=== PATIENT | male | born 1985 | race Caucasian/White ===

== ENCOUNTER 2021-02-28 13:03 | Emergency (ER) | payer MEDICAID, SELFPAY ==
[2021-02-28] VITALS (10 sets, daily range): BP systolic 117–138; BP diastolic 78–91; PULSE 115–123; RESP 16–28; TEMP 36.8; O2SAT 94–119; BMI 26.6
--- NOTE | 2021-02-28 13:24 | ED_ITS ---
HPI - General Adult General: Chief complaint: General Medical Stated complaint: POSS JAUNDICE, SWELLING IN GROIN, BLOATING, ETC Time Seen by Provider: 02/28/21 13:23 Source: patient Mode of arrival: ambulatory Limitations: no limitations History of Present Illness: HPI narrative: 36-year-old male patient presents to the emergency room with a list of complaints and past medical history. He reports recently discharged from [facility] [place] approximately 6 weeks ago for seizures. He reports for the past week, has experienced testicular swelling that has now increased into the shaft of the penis. He denies trauma or injury with 2-day history of pain with urination. He reports upon urinating first thing in the morning, there appears to be blood then urine will clear throughout the day. He reports taking dnyf-ide-vsenvcw water pills x 5 weeks, took for dehydration ; he reports swelling in the bilateral lower extremities that started several weeks prior. Other complaints includes jaundice for 5 weeks. He reports his skin discoloration is worsening along with discoloration of the sclera, eyes. He reports seizure history, remains on Keppra. He states daily intake of the fifth of whiskey x3 years; reports 3 weeks ago has decreased his intake to 45 mils per day as he is trying to cut back. He reports abdominal distention, change of bowel movement size and consistency and color. He reports does not know what is going on but is here for help. He reports belly pain with belly swelling. He denies abdominal surgery. Onset (ago): week(s) Location: abdomen, pelvis and genitals Severity: moderate Relieving factors: none Exacerbating factors: none Associated symptoms: Reports decreased appetite, malaise and weakness; Deny chest pain, diaphoresis, dyspnea, headache(s), nausea, rash, palpitations, syncope or vomiting Review of Systems General: Reports: 10 or more systems reviewed and unremarkable except in HPI and below Const: Reports: body aches, fatigue and malaise; Denies: fever(s), chills or diaphoresis Eyes: Reports: yellow eyes; Denies: change in vision, blurry vision, eye discomfort or eye redness ENMT: Denies: throat pain, uvular edema, dental pain, disequilibrium, nasal congestion or nasal obstruction Card: Reports: swelling of feet/ankles and dyspnea on exertion; Denies: chest pain, palpitations, irregular heart rhythm, lightheadedness or syncope Resp: Denies: dyspnea, productive cough, non-productive cough, wheezing or chest congestion GI: Reports: abdominal pain, early satiety, constipation, bloating, change in bowel habits and white/light colored stool; Denies: nausea, vomiting, hematemesis, heartburn, fecal incontinence, pain on defecation or hematochezia : Reports: urinary hesitancy, change in urine stream, hematuria, testicular pain and scrotal swelling; Denies: dysuria Musc: Reports: muscle weakness; Denies: neck pain, back pain or joint pain Skin/Breast: Reports: changes in skin color; Denies: rash, pruritus or erythema Neuro: Denies: headache(s), numbness in extremities, weakness in extremities, vertigo, behavioral changes or seizure-like activity Psych: Denies: anxiety or depression Isidro/Lymph: Denies: easy bruising PFSH ED PFSH: Medical History Alcohol abuse Seizure Physical Exam Const: COMMON NORMALS: no acute distress, patient oriented x3 and alert GENERAL APPEARANCE: cooperative, comfortable, well kempt and ill appearing NUTRITIONAL APPEARANCE: thin ORIENTATION/CONSCIOUSNESS: Yes awake, Yes oriented to person, Yes oriented to place and Yes oriented to time HENMT: COMMON NORMALS: normocephalic, atraumatic, external ears normal, EAC's normal, Normal external nose present and moist oral mucous membranes HEAD & SCALP: normal to inspection, normocephalic and atraumatic FACE & SINUS: sinuses nontender; face not symmetric, no erythema and no edema NOSE: Normal external nose present EXTERNAL EAR: Yes external ears normal EXTERNAL AUDITORY CANAL: EAC's normal MOUTH: lip normal, tongue normal and Abnormal oral and palatal mucosa present (Jaundice) THROAT: no uvular edema Eye: COMMON NORMALS: Equal, round and reactive pupils present and EOMs intact bilaterally GENERAL EYE: appearance normal, both eyes and all related structures ALIGNMENT: Yes alignment normal PERIORBITAL: periorbital findings normal EYELID: eyelids normal CONJUNCTIVA: Yes conjunctival abnormal positive bilateral other (Jaundice) SCLERA: scleral abnormal Laterality of scleral abnormality: positive bilateral other (Jaundice) PUPIL: Yes Equal, round and reactive pupils present Neck/C-Spine: COMMON NORMALS: full ROM and no lymphadenopathy GENERAL: Yes normal visual inspection and Yes trachea midline CERVICAL SPINE: Yes cervical ROM normal Lymph: LYMPHATIC: no lymphadenopathy noted Chest: COMMONS NORMALS: normal inspection of the chest and normal palpation of entire chest wall Resp: COMMON NORMALS: normal respiratory effort, No retractions, No use of accessory muscles and clear to auscultation bilaterally EFFORT & INSPECTION: Yes able to speak in complete sentences, Yes symmetric chest movement, No tachypneic and No uses accessory muscles AUSCULTATION: clear to auscultation bilaterally Cardio: COMMON NORMALS: regular rate, regular rhythm, S1 normal heart sound present, S2 normal heart sound present and Peripheral pulses 2+ throughout RATE: regular rate and tachycardic RHYTHM: regular rhythm HEART SOUNDS: S1 normal heart sound present and S2 normal heart sound present PERIPHERAL PULSES: Peripheral pulses 2+ throughout GI: INSPECTION: Yes normal to inspection, No abdominal wall ecchymosis, Yes abdominal distension, No central obesity, No visible herniation, Yes Fluid wave present and Yes Localized GI swelling present AUSCULTATION: Yes Hypoactive bowel sounds present PALPATION: Yes Tenderness to palpation present (GI) Details: LLQ, RLQ, LUQ and RUQ and Yes Hepatosplenomegaly present PERCUSSION: dullness to percussion and Fluid wave present : COMMON NORMALS: Yes no CVA tenderness BLADDER/KIDNEY EXAM: Yes no CVA tenderness Back/Pelvis: COMMON NORMALS: no CVA tenderness, thoracic and lumbar spine normal to inspection and no thoracic nor lumbar tenderness Extremity: COMMON NORMALS: normal to inspection, full ROM, capillary refill normal and no pedal edema GENERAL: Yes normal exam except as noted Neuro: COMMON NORMALS: patient oriented x3 and no focal motor deficits SENSORIUM/ORIENTATION: Yes alert, Yes oriented to person, Yes oriented to place and Yes oriented to time Psych: COMMON NORMALS: mental status grossly normal, Normal thought process present and cooperative APPEARANCE: Yes well kempt ACTIVITY/MOTOR BEHAVIOR: Yes appropriate eye contact THOUGHT PROCESS: Normal thought process present Skin: COMMON NORMALS: no rashes or lesions noted and turgor normal GENERAL SKIN EXAM: no rashes or lesions noted, turgor normal, dry skin and jaundice RASHES: rashes noted Petechial rash to the upper torso anterior and posterior Rash type: Yes petechiae Rash location: Upper anterior and posterior chest wall Rash shape: Yes oval Rash tenderness: Yes nontender Course Vital Signs: Vital signs: Vital Signs Temperature 98.2 F 02/28/21 13:16 Pulse Rate 115 H 02/28/21 15:23 Respiratory Rate 28 H 02/28/21 15:23 Blood Pressure 135/91 02/28/21 15:23 Pulse Oximetry 97 02/28/21 15:23 MDM - General Adult MDM Narrative: Medical decision making narrative: And appears very ill, transfer of care to Dr. Lee as patient will need higher level of care and possible transfer. Highly suspicious of liver failure. Lab Data: Labs: Lab Results 02/28/21 02/28/21 02/28/21 Range/Units 14:19 14:19 14:19 WBC 32.9 H* (4.0-10.0) 10^3/ uL RBC 3.07 L (4.1-5.3) 10^6/u L Hgb 11.3 L (11.7-16.6) g/dL Hct 32.5 L (42.0-52.0) % MCV 105.9 H (80-94) fL MCH 36.8 H (28.0-34.0) pg MCHC 34.8 (30.0-36.0) g/dL RDW 24.8 H (12.1-15.1) % Plt Count 187 (130-400) 10^3/c mm MPV 11.1 H (7.4-10.4) fL Neut % (Auto) 84.0 % Lymph % (Auto) 4.7 % [place] % (Auto) 6.2 % Eos % (Auto) 0.3 % Baso % (Auto) 0.2 % Neut # (Auto) 27.66 H (1.8-7.7) 10^3/u L Lymph # (Auto) 1.5 (0.8-4.8) 10^3/u L [place] # (Auto) 2.0 H (0.2-0.9) 10^3/u L Eos # (Auto) 0.1 (0.0-0.8) 10^3/u L Baso # (Auto) 0.1 (0.0-0.1) 10^3/u L Nucleated RBC % (a uto) 0.3 % Nucleated RBCs # 0.1 /100WBC PT 18.80 H (12.1-14.9) SECO NDS INR 1.52 H (0.8-1.2) APTT 52.5 H (23.9-36.7) SECO NDS Anion Gap 15.7 (5-19) BUN 11 (6-20) mg/dL ALT 18 (0-41) U/L Troponin T Baselin e (0-15) ng/L Total Protein 6.7 (6.6-8.7) g/dL Globulin 4.1 (1.3-4.6) g/dL Lipase 31 (13-60) U/L Urine Color (Yellow) Urine Appearance (CLEAR) Urine pH (5-7) Ur Specific Gravit y (1.005-1.030) Urine Protein (Negative) Urine Glucose (UA) (Normal) Urine Ketones (Negative) Urine Blood (Negative) Urine Nitrate (Negative) Urine Bilirubin (Negative) Urine Urobilinogen (Negative) mg/dL Ur Leukocyte Serina ase (Negative) Urine RBC (0-2) /hpf Urine WBC (0-5) /hpf Ur Squamous Epith Cells (0-5) /hpf Amorphous Sediment Urine Bacteria (NONE) /hpf Urine Opiates Scre en (Negative) ng/mL Ur Barbiturates Sc reen (Negative) ng/mL Ur Phencyclidine S crn (Negative) ng/mL Ur Amphetamines Sc reen (Negative) ng/mL U Benzodiazepines Scrn (Negative) ng/mL Urine Cocaine Scre en (Negative) ng/mL U Marijuana (THC) Screen (Negative) ng/mL 02/28/21 02/28/21 02/28/21 Range/Units 14:19 14:29 14:32 WBC (4.0-10.0) 10^3/ uL RBC (4.1-5.3) 10^6/u L Hgb (11.7-16.6) g/dL Hct (42.0-52.0) % MCV (80-94) fL MCH (28.0-34.0) pg MCHC (30.0-36.0) g/dL RDW (12.1-15.1) % Plt Count (130-400) 10^3/c mm MPV (7.4-10.4) fL Neut % (Auto) % Lymph % (Auto) % [place] % (Auto) % Eos % (Auto) % Baso % (Auto) % Neut # (Auto) (1.8-7.7) 10^3/u L Lymph # (Auto) (0.8-4.8) 10^3/u L [place] # (Auto) (0.2-0.9) 10^3/u L Eos # (Auto) (0.0-0.8) 10^3/u L Baso # (Auto) (0.0-0.1) 10^3/u L Nucleated RBC % (a uto) % Nucleated RBCs # /100WBC PT (12.1-14.9) SECO NDS INR (0.8-1.2) APTT (23.9-36.7) SECO NDS Anion Gap (5-19) BUN (6-20) mg/dL ALT (0-41) U/L Troponin T Baselin e 6 (0-15) ng/L Total Protein (6.6-8.7) g/dL Globulin (1.3-4.6) g/dL Lipase (13-60) U/L Urine Color Brown (Yellow) Urine Appearance Sl hazy (CLEAR) Urine pH 6.5 (5-7) Ur Specific Gravit y 1.020 (1.005-1.030) Urine Protein Trace (Negative) Urine Glucose (UA) Norm (Normal) Urine Ketones Negative (Negative) Urine Blood Trace H (Negative) Urine Nitrate Negative (Negative) Urine Bilirubin 3+ H (Negative) Urine Urobilinogen 8 H (Negative) mg/dL Ur Leukocyte Serina ase Negative (Negative) Urine RBC Rare (0-2) /hpf Urine WBC 0-4 H (0-5) /hpf Ur Squamous Epith Cells None (0-5) /hpf Amorphous Sediment Not Reportable Urine Bacteria 2+ H (NONE) /hpf Urine Opiates Scre en Negative (Negative) ng/mL Ur Barbiturates Sc reen Negative (Negative) ng/mL Ur Phencyclidine S crn Negative (Negative) ng/mL Ur Amphetamines Sc reen Negative (Negative) ng/mL U Benzodiazepines Scrn Negative (Negative) ng/mL Urine Cocaine Scre en Negative (Negative) ng/mL U Marijuana (THC) Screen Positive H (Negative) ng/mL Coding Level of Care Code ED Hand Finisher for Chg Fwd Exam Comprehensive
--- NOTE | 2021-02-28 14:14 | CT_ITS ---
WS: [id number] CT ABDOMEN AND PELVIS WITH CONTRAST HISTORY: jaundice and abd pain TECHNIQUE: Imaging performed of the abdomen and pelvis with IV contrast. Single phase imaging of the abdomen. Coronal and sagittal reformats are submitted. All CT scans at [facility] use at least one of these dose optimization techniques: automated exposure control; mA and/or kV adjustment per patient size (includes targeted exams where dose is matched to clinical indication); or iterativ e reconstruction. IV CONTRAST: Omnipaque 300; 95 mL IV. Oral contrast: No DLP: 1850.19 mGy.cm COMPARISON: None available. Lower thorax: Very small pleural effusion at the medial RIGHT lung base along with atelectasis. Benig n RIGHT lower lobe granuloma. Heart is normal size. Small hiatal hernia. Liver/biliary system: Liver is enlarged and edematous. The surface of the liver is slightly irregular suggesting cirrhosis. There is also enlargement of the caudate. No mass. Gallbladder: Normal. No gallstones or wall thickening. No pericholecystic fluid. Pancreas: Normal. Spleen: Spleen is slightly enlarged at 14.5 cm in length. There are a few splenic granulomatous. Adrenal glands: Normal. Right kidney: Normal. Left kidney: Normal. Aorta: Normal. Lymphadenopathy: None. Free fluid: Moderate amount of ascites throughout the abdomen. GI tract: Unremarkable. Normal appendix. No obstruction. Abdominal wall: Small fat-containing helical hernia. Pelvis: Moderate amount of free fluid in the pelvis. Urinary bladder is only mildly distended. No mee nopathy. There is a small amount of fluid extending into the RIGHT inguinal canal which is probably s econdary to a patent process vaginalis. Bones: Unremarkable. CT/CT abdomen pelvis w con* [id number] IMPRESSION: 1. Moderate to large amount of ascites. 2. Hepatosplenomegaly and changes of portal venous hypertension. 3. Very small RIGHT pleural effusion. 4. No GI tract obstruction. 5. Mild soft tissue anasarca. 6. Small amount of ascites extends into the RIGHT scrotum.
--- NOTE | 2021-02-28 14:14 | US_ITS ---
WS: [id number] TESTICULAR ULTRASOUND HISTORY: scrotal swelling and pain COMPARISON: None available. TECHNIQUE: Real-time and color Doppler imaging or utilized to perform a testicular ultrasound. Right testicle: 3.6 cm x 4.8 cm x 2.2 cm. Normal size and echogenicity. No mass or torsion. Normal color Doppler is present throughout. Systolic and diastolic velocities are both present. Large simple hydrocele surrounds the testicle and distends the scrotal sac. Right epididymis: Not well seen due to the large hydrocele. Left testicle: 4.4 cm x 2.4 cm x 2.8 cm. Normal size and echogenicity. No mass or torsion. Normal color Doppler is present throughout. Systolic and diastolic velocities are both present. No significant hydrocele. Left epididymis: Not well visualized. US/US scrotum [id number] IMPRESSION: 1. Large simple RIGHT hydrocele. 2. No testicular mass or torsion.
[2021-02-28 14:33] LABS: Basophils # 0.1 10^3/uL (0.0-0.1); Basophils % 0.2 %; Eosinophils # 0.1 10^3/uL (0.0-0.8); Eosinophils % 0.3 %; Hematocrit 32.5 % (42.0-52.0); Hemoglobin 11.3 g/dL (11.7-16.6); Lymphocytes # 1.5 10^3/uL (0.8-4.8); Lymphocytes % 4.7 %; Mean Corpuscular HGB Conc 34.8 g/dL (30.0-36.0); Mean Corpuscular Hemoglobin 36.8 pg (28.0-34.0); Mean Corpuscular Volume 105.9 fL (80-94); Mean Platelet Volume 11.1 fL (7.4-10.4); Monocytes % 6.2 %; Neutrophils # 27.66 10^3/uL (1.8-7.7); Nucleated Red Blood Cells # 0.1 /100WBC; Nucleated Red Blood Cells % 0.3 %; Platelet Count 187 10^3/cmm (130-400); Red Blood Count 3.07 10^6/uL (4.1-5.3); Red Cell Distribution Width 24.8 % (12.1-15.1)
[2021-02-28] MEDS: iohexol 300 mg/mL 100 mL Btl IV (14:33)
--- NOTE | 2021-02-28 14:35 | ECG_ITS ---
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 Measurements Intervals [place] Rate: 114 P: 35 HI: 182 QRS: 70 QRSD: 100 T: 44 QT: 340 QTc: 470 Interpretive Statements SINUS TACHYCARDIA SEPTAL MYOCARDIAL INFARCTION , PROBABLY OLD [40+ ms Q WAVE IN V1/V2] No previous ECG available for comparison Electronically Signed On 02-28-2021 17:18:07 CDT by Latisha Grijalva M.D. [id number]
[2021-02-28 14:43] LABS: Alanine Aminotransferase 18 U/L (0-41); Albumin Level 2.6 g/dL (3.5-5.2); Alkaline Phosphatase 555 IU/L (40-130); Anion Gap 15.7 (5-19); Aspartate Amino Transferase 169 U/L (0-40); Blood Urea Nitrogen 11 mg/dL (6-20); Calcium 7.8 mg/dL (8.5-10.5); Carbon Dioxide 21 mmol/L (22-29); Chloride 90 mmol/L (98-107); Globulin 4.1 g/dL (1.3-4.6); Glomerular Filtration Rate 335.5 mL/min (90-130); Glucose 117 mg/dL (65-115); Lipase 31 U/L (13-60); Osmolality Calculated 258 mOsm/kg (285-295); Sodium 124 mmol/L (136-145); Total Protein 6.7 g/dL (6.6-8.7)
[2021-02-28 14:48] LABS: INR 1.52 (0.8-1.2)
[2021-02-28 14:49] LABS: Partial Thromboplastin Time 52.5 SECONDS (23.9-36.7)
[2021-02-28 14:57] LABS: Troponin(5th) Baseline 6 ng/L (0-15)
[2021-02-28 15:09] LABS: Slide Review Slide Review Perform
[2021-02-28 15:10] LABS: White Blood Count 32.9 10^3/uL (4.0-10.0)
[2021-02-28 15:20] LABS: Add Urine Microscopic? YES; Bilirubin Urine 3+ (Negative); Blood Urine Trace (Negative); Glucose Urine UA Norm (Normal); Ketones Urine Negative (Negative); Leukocyte Esterase Urine Negative (Negative); Nitrate Urine Negative (Negative); Protein Urine Trace (Negative); Urine Appearance SL Hazy (CLEAR); Urine Color Brown (Yellow); Urobilinogen Urine 8 mg/dL (Negative); pH Urine 6.5 (5-7)
[2021-02-28 15:22] LABS: Add Urine Culture? No; Bacteria Urine 2+ /hpf; RBC Urine RARE /hpf (0-2); WBC Urine 0-4 /hpf (0-5)
[2021-02-28 15:22] LABS: Amphetamines Screen Urine Negative (Negative); Barbiturates Screen Urine Negative (Negative); Benzodiazepines Screen Urine Negative (Negative); Cocaine Screen Urine Negative (Negative); Opiate Screen Urine Negative (Negative); PCP Screen Urine Negative (Negative); THC Screen Urine Positive (Negative)
[2021-02-28 15:32] LABS: Alcohol Level 80 mg/dL (0-10); Potassium 2.7 mmol/L (3.5-5.1); Total Bilirubin 35.9 mg/dL (0.15-1.2)
--- NOTE | 2021-02-28 15:39 | PC.PHAR ---
pt states he takes care of his own medications-pt states he uses his girlfriends inhaler ventolin and he uses prn-pt states he may use once a week-pt states he takes lipitor-pt states he is unsure of the mg-pt states hes not sure where he got it from-called pts girlfriend addi to see if she could look at the bottle for the mg- no answer-pt states he is taking lisinopril -ext med history shows last filled on 12/06/20 30d/s-pt states he takes levetiracetam 187.5mg (12/03 tab) po bid-(last filled 12/06/20) 750mg po bid-pt states he takes metoprolol 25mg po daily-(rx filled 12/06/20) 25mg po bid-
[2021-02-28 15:46] LABS: Ammonia 61 umol/L (16-60); Lactate (Lactic Acid level) 3.3 mmol/L (0.5-2.2)
[2021-02-28] MEDS: lactated ringers 1,000 ML 999 ML IV (15:53)
[2021-02-28] MEDS: LORazepam 2 mg/mL INJ 1 mL 1 MG IVP ×3 (15:54→23:14)
[2021-02-28] MEDS: vancomycin 1,250 MG/250 ML PIGGYBACK 250 MG IV (15:56)
[2021-02-28] MEDS: piperacillin-tazobactam 3.375 GM in sodium chloride 0.9% (plus) 50 ML IV ×2 (15:56→22:59)
[2021-02-28 16:30] LABS: Troponin 5 2HR Delta 0 ABS# (0-10)
[2021-02-28 16:33] LABS: Potassium 2.8 mmol/L (3.5-5.1)
--- NOTE | 2021-02-28 16:35 | ECG_ITS ---
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 Measurements Intervals [place] Rate: 117 P: 18 WI: 166 QRS: 48 QRSD: 109 T: 16 QT: 347 QTc: 485 Interpretive Statements SINUS TACHYCARDIA LOW QRS VOLTAGE IN PRECORDIAL LEADS [QRS DEFLECTION < 1.0 mV IN CHEST LEADS] INCOMPLETE RIGHT BUNDLE BRANCH BLOCK [90+ ms QRS DURATION, TERMINAL R IN V1/V2, 40+ ms S IN I/aVL/V4/V5/V6] SEPTAL MYOCARDIAL INFARCTION , PROBABLY OLD [40+ ms Q WAVE IN V1/V2] Compared to ECG 02/28/2021 14:58:14 Low QRS voltage now present Incomplete right bundle-branch block now present Myocardial infarct finding still present Electronically Signed On 02-28-2021 17:24:12 CDT by Latisha Grijalva M.D. [id number]
--- NOTE | 2021-02-28 16:47 | PC.NURSE ---
EKG done at 1645 and shown to ER doctor
[2021-02-28 20:35] LABS: Troponin 5 6HR Delta 0 ng/L (0-12)
--- NOTE | 2021-02-28 20:35 | ECG_ITS ---
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 Measurements Intervals [place] Rate: 117 P: 72 MO: 168 QRS: 54 QRSD: 97 T: 31 QT: 348 QTc: 486 Interpretive Statements SINUS TACHYCARDIA SEPTAL MYOCARDIAL INFARCTION , PROBABLY OLD [40+ ms Q WAVE IN V1/V2] Compared to ECG 02/28/2021 16:44:34 Incomplete right bundle-branch block no longer present Myocardial infarct finding still present Electronically Signed On 02-28-2021 22:33:11 CDT by Latisha Grijalva M.D. [id number]
--- NOTE | 2021-02-28 20:53 | PC.NURSE ---
EKG done at 2049 and shown to ER doctor
--- NOTE | 2021-02-28 22:54 | PC.NURSE ---
report received from SOHAIL Thomas and care transferred to SOHAIL Ring
[2021-02-28] MEDS: sodium chloride 0.9% 1,000 ML 999 ML IV (22:56)
--- NOTE | 2021-02-28 23:02 | PC.PHAR ---
Vancomycin is dosed at 1gm IVPB every 8 hours to produce a predicted trough level of 16.94 (population based pharmacokinetic analysis). A trough level has been ordered from the lab to be obtained before the fourth dose to confirm and adjust if needed. Zosyn is dosed at 3.375gm IVPB every 8 hours on basis of creatinine clearance of 332.9
[2021-02-28 23:05] LABS: Lactate (Lactic Acid level) 2.7 mmol/L (0.5-2.2)
[2021-03-01] VITALS: BP 120/84; PULSE 118; RESP 18
[2021-03-01] MEDS: vancomycin 1,000 MG in sodium chloride 0.9% 250 ML 250 MG IV (00:01)
[2021-03-01 00:04] LABS: Hepatitis A Antibody IgM Non-Reactive (Nonreactive); Hepatitis B Surface AB 27.2 (11.5-1000); Hepatitis B Surface Antigen Non-Reactive (Nonreactive); Hepatitis C Virus Antibody Non-Reactive (Nonreactive)
[2021-03-01 00:51] LABS: Hepatitis B Core AB, Total Reactive (Nonreactive)
== END 2021-03-01 00:14 ==
PROVIDERS: Nurse Practitioner Family; Emergency Provider Family Medicine
DX: N50.89 Other specified disorders of the male genital organs (principal)
CPT/HCPCS: 36415; 74177; 76870; 80053; 80306; 80307; 81001; 82140; 83605; 83690; 84132; 84484; 85025; 85610; 85730; 86705; 86706; 86709; 86803; 87040; 87340; 93005; 96365; 96367; 96368; 96375; 96376; 99285; J2060; J2543; J3370; J3480; J7030; J7050; Q9967

== ENCOUNTER 2021-03-14 12:06 | Emergency (ER) | payer OTHER, SELFPAY ==
[2021-03-14 12:15] VITALS: BP 132/89; PULSE 85; RESP 18; TEMP 36.5; O2SAT 100; BMI 27.8
--- NOTE | 2021-03-14 12:35 | ED_ITS ---
HPI - General Adult General: Chief complaint: General Medical Stated complaint: POSS ANTIFREEZE POISONING Time Seen by Provider: 03/14/21 12:25 History of Present Illness: HPI narrative: Patient father states that he believes patient might be given antifreeze poisoning. He cannot reporting specific incidents of it happening but says patient has liver pancreatic and kidney failure as told by the doctors in [place]. Female patient has been alcoholic for many years and just quit drinking 10 days ago the father believes that his antifreeze is possible because because he research that on [employer] and his symptoms are consistent with the antifreeze poisoning. Nausea confusion at times jaundice. MD complaint: Nausea Onset (ago): week(s) Associated symptoms: Reports no associated symptoms; Deny chest pain, dyspnea, headache(s), nausea, rash or vomiting Treatments prior to arrival: other (Liver pancreas and kidney failure) Review of Systems Const: Denies: fever(s), chills or body aches Eyes: Denies: change in vision or blurry vision ENMT: Denies: throat pain or nasal congestion Card: Denies: chest pain or dyspnea on exertion Resp: Denies: dyspnea, productive cough or non-productive cough GI: Reports: bloating; Denies: abdominal pain, nausea or vomiting : Denies: difficulty urinating Musc: Denies: extremity pain Skin/Breast: Reports: pruritus and jaundice; Denies: rash Neuro: Denies: headache(s) Psych: Reports: mood swings; Denies: anxiety or depression Isidro/Lymph: Denies: easy bruising PFS ED PFSH: Medical History Alcohol abuse Seizure Physical Exam Const: COMMON NORMALS: no acute distress, average body habitus and patient o riented x3 HENMT: COMMON NORMALS: normocephalic HEAD & SCALP: normal to inspection and normocephalic FACE & SINUS: normal facial exam Eye: COMMON NORMALS: conjunctivae normal GENERAL EYE: appearance normal, both eyes and all related structures CONJUNCTIVA: Yes conjunctivae normal SCLERA: scleral abnormal (Jaundiced) Neck/C-Spine: COMMON NORMALS: no JVD Chest: COMMONS NORMALS: normal inspection of the chest Resp: COMMON NORMALS: normal respiratory effort and clear to auscultation bilaterally AUSCULTATION: clear to auscultation bilaterally Cardio: COMMON NORMALS: no JVD, regular rate and regular rhythm RATE: regular rate RHYTHM: regular rhythm GI: INSPECTION: Yes abdominal distension Extremity: COMMON NORMALS: normal to inspection and full ROM Neuro: COMMON NORMALS: patient oriented x3 Psych: COMMON NORMALS: mental status grossly normal Skin: GENERAL SKIN EXAM: jaundice and petechiae Course Vital Signs: Vital signs: Vital Signs Temperature 97.7 F 03/14/21 12:15 Pulse Rate 79 03/14/21 12:48 Respiratory Rate 16 03/14/21 12:48 Blood Pressure 122/87 03/14/21 12:48 Pulse Oximetry 100 03/14/21 12:48 MDM - General Adult MDM Narrative: Medical decision making narrative: Will call patient with the lab results. They are wanting go home. All either of them is interested is whether he has had antifreeze poisoning. Explained to him what liver failure and pancreas and kidney failure and antifreeze poisoning having, and difficulty in differentiating those based on just lab results without having a clear-cut history that patient is being poisoned they said he understood. Patient is not confused all answers all questions appropriately dad and mom are the one that want him tested. Patient patient says he did really did not want be tested but he is going along with them so they will be please. Lab results message was left on patient's dad's phone as requested by them. 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 ID Cak Ammonia 42 (16-60) umol/L Discharge Plan Discharge Patient Disposition: Home Clinical Impression: Alcoholic liver failure Condition: Stable Prescriptions: No Action quetiapine 100 mg tablet See Rx Instructions .ROUTE .COMPLEX RF: 0 amlodipine 10 mg tablet 10 mg PO DAILY RF: 0 pantoprazole 40 mg tablet,delayed release (DR/EC) 40 mg PO DAILY RF: 0 levetiracetam 750 mg tablet See Rx Instructions .ROUTE .COMPLEX RF: 0 lisinopril 5 mg tablet 5 mg PO DAILY RF: 0 metoprolol tartrate 25 mg tablet See Rx Instructions .ROUTE .COMPLEX RF: 0 multivitamin Tablet 1 tab PO DAILY RF: 0 Aspir-81 81 mg Tablet,Delayed Release (Dr/Ec) 81 mg PO PRN RF: 0 vitamin B complex Tablet 1 tab PO QAM RF: 0 Ventolin HFA 90 mcg/actuation Hfa Aerosol Inhaler 2 puff INHALATION PRN RF: 0 Glucosamine Chondroitin 550-30-1 mg Capsule 0.5 cap PO BID RF: 0 Lipitor 1 tab PO DAILY RF: 0 MegaRed Advanced 4-in-1 1 cap PO BEDTIME RF: 0 Probiotic 1 cap PO QAM RF: 0 Discharge Orders: Discharge ED (Routine); Ordered 03/14/21 Ordered By: Aldo Dwyer Discharge Diet: Usual diet Discharge Activity: Resume usual activity Activity Restrictions/Additional Instructions: Patient requesting go home will be notified of lab results. Follow-up primary care doctor. Coding Level of Care Code ED Rn Hemodialysis Charge for Beronica Fwd Exam Comprehensive
[2021-03-14 12:44] LABS: ABG PCO2 29.6 mmHg (35-45); ABG PH Result 7.39 (7.35-7.45); Base Excess ABG -6.2 mmol/L (-2.0-2.0); Blood Gas Allen Test Pos; Blood Gas Operator Identificat CAK; Blood Gas Sample Site Radial, left; Blood Gas Sample Type Arterial; HCO3 ABG 17.9 mmol/L (22-26); Oxygen Device ROOM AIR; PO2 ABG 59.2 mmHg (80.0-100.0)
[2021-03-14 12:48] VITALS: BP 122/87; PULSE 79; RESP 16; O2SAT 100
[2021-03-14 15:05] LABS: Ammonia 42 umol/L (16-60)
== END 2021-03-14 14:38 | disposition home or self-care (01) ==
PROVIDERS: Emergency Provider Nurse Practitioner Family
DX: K70.40 Alcoholic hepatic failure without coma (principal); Z79.82 Long term (current) use of aspirin
CPT/HCPCS: 36600; 82140; 82803; 99282

== ENCOUNTER 2021-03-28 13:30 | Emergency (ER) | payer OTHER, SELFPAY ==
[2021-03-28 14:22] VITALS: BP 154/102; PULSE 109; RESP 18; TEMP 37.1; O2SAT 95; BMI 34.4
[2021-03-28 14:38] VITALS: BP 147/106; PULSE 110; RESP 16; O2SAT 96
[2021-03-28 15:18] LABS: Basophils # 0.1 10^3/uL (0.0-0.1); Basophils % 0.7 %; Eosinophils # 0.3 10^3/uL (0.0-0.8); Eosinophils % 2.1 %; Hemoglobin 10.2 g/dL (11.7-16.6); Lymphocytes % 20.4 %; Mean Corpuscular HGB Conc 32.9 g/dL (30.0-36.0); Mean Corpuscular Hemoglobin 36.6 pg (28.0-34.0); Mean Corpuscular Volume 111.1 fL (80-94); Mean Platelet Volume 9.7 fL (7.4-10.4); Monocytes # 1.2 10^3/uL (0.2-0.9); Monocytes % 7.9 %; Neutrophils # 10.08 10^3/uL (1.8-7.7); Nucleated Red Blood Cells % 0 %; Platelet Count 254 10^3/cmm (130-400); Red Blood Count 2.79 10^6/uL (4.1-5.3); Red Cell Distribution Width 15.2 % (12.1-15.1); White Blood Count 14.8 10^3/uL (4.0-10.0)
[2021-03-28 15:28] LABS: INR 1.42 (0.8-1.2)
[2021-03-28 15:42] LABS: Alanine Aminotransferase 14 U/L (0-41); Albumin Level 2.8 g/dL (3.5-5.2); Alkaline Phosphatase 328 IU/L (40-130); Anion Gap 16.1 (5-19); Aspartate Amino Transferase 39 U/L (0-40); Blood Urea Nitrogen 12 mg/dL (6-20); Calcium 8.2 mg/dL (8.5-10.5); Carbon Dioxide 14 mmol/L (22-29); Chloride 102 mmol/L (98-107); Globulin 4.5 g/dL (1.3-4.6); Glomerular Filtration Rate 83.6 mL/min (90-130); Glucose 86 mg/dL (65-115); Lipase 26 U/L (13-60); Osmolality Calculated 265 mOsm/kg (285-295); Potassium 4.1 mmol/L (3.5-5.1); Sodium 128 mmol/L (136-145); Total Bilirubin 4.1 mg/dL (0.15-1.2); Total Protein 7.3 g/dL (6.6-8.7)
[2021-03-28 15:43] LABS: Lactate (Lactic Acid level) 1.6 mmol/L (0.5-2.2)
[2021-03-28 15:45] LABS: Alcohol Level < 10 mg/dL (0-10)
--- NOTE | 2021-03-28 16:11 | XRR_ITS ---
PROCEDURE INFORMATION: Exam: XR Chest Exam date and time: 03/28/2021 4:11 PM Age: 36 years old Clinical indication: Shortness of breath and other: Reduced breath sounds TECHNIQUE: Imaging protocol: XR of the chest. Views: 1 view. Total images: 1 COMPARISON: No relevant prior studies available. FINDINGS: Lungs: Diminished inspiratory effort. Vascular crowding and mild discoid atelectasis in the lung bases. Pleural spaces: Potential bilateral small pleural effusions. Heart/Mediastinum: Cardiac structures and configuration unremarkable. Bones/joints: Unremarkable. XR/XR chest 1V portable [id number] IMPRESSION: 1. Diminished inspiratory effort. 2. Vascular crowding and mild discoid atelectasis in the lung bases. 3. Potential bilateral small pleural effusions.
[2021-03-28 16:18] VITALS: RESP 16; O2SAT 98
[2021-03-28] MEDS: morphine 4 mg/mL SDV 1 mL IM (16:18)
--- NOTE | 2021-03-28 18:51 | ED_ITS ---
HPI - Abdominal Pain General: Chief Complaint: Abdominal Pain Stated Complaint: EMERGENCY DRAINAGE Time Seen by Provider: 03/28/21 14:44 History of Present Illness: HPI narrative: The patient is a 36-year-old male on hospice for end-stage liver failure with ascites requiring paracentesis. He comes to the ER with abdominal distention and pain requesting a paracentesis. Denies shortness of breath other than his belly is swollen and it is hard to take deep breaths. He complains of chronic abdominal pain and its worse whenever his belly gets full. Denies fever. He is satting well on room air. He says it is not so much abdominal pain just significant discomfort as he is severely distended MD elicited complaint: abdominal pain Location: Diffuse Quality: fullness Associated Symptoms: Reports no associated symptoms and other (Abdominal fullness); Denies GI cramping and diarrhea Review of Systems General: Reports: 10 or more systems reviewed and unremarkable except in HPI and below Const: Denies: fatigue Eyes: Denies: change in vision, blurry vision or eye redness ENMT: Denies: throat pain, swelling of lips/tongue, ear or mastoid pain or nasal congestion Card: Denies: chest pain, palpitations, irregular heart rhythm, edema, dyspnea on exertion or orthopnea Resp: Denies: dyspnea, productive cough or non-productive cough GI: Reports: other (Abdominal fullness); Denies: diarrhea or GI cramping : Denies: flank pain, urinary frequency or urinary urgency Musc: Denies: neck pain, back pain, extremity pain, joint pain, joint redness, limited range of motion or muscle weakness Skin/Breast: Denies: rash, pruritus, erythema, skin pain or skin tenderness Neuro: Denies: headache(s), numbness in extremities, weakness in extremities, sensory changes, difficulty walking, dizziness, confusion or Slurred speech present Psych: Denies: anxiety or depression Endo: Denies: polyuria All/Imm: Denies: urticaria, throat swelling or tongue swelling PFSH ED PFSH: Medical History Alcohol abuse Seizure Physical Exam Const: COMMON NORMALS: no acute distress, average body habitus, patient oriented x3, no limitations, healthy appearing, alert and well nourished GENERAL APPEARANCE: cooperative, comfortable, well kempt and well developed ORIENTATION/CONSCIOUSNESS: Yes awake, Yes oriented to person, Yes oriented to place and Yes oriented to time HENMT: COMMON NORMALS: normocephalic, external ears normal and Normal external nose present HEAD & SCALP: normal to inspection and normocephalic NOSE: Normal external nose present EXTERNAL EAR: Yes external ears normal MOUTH: Normal oral and palatal mucosa present THROAT: posterior oropharynx normal Eye: COMMON NORMALS: Equal, round and reactive pupils present and EOMs intact bilaterally PUPIL: Yes Equal, round and reactive pupils present OTHER: Patient has scleral icterus chronically from his chronic liver failure Neck/C-Spine: COMMON NORMALS: full ROM, no lymphadenopathy, no meningeal signs and no JVD GENERAL: Yes normal visual inspection Lymph: LYMPHATIC: no lymphadenopathy noted Chest: COMMONS NORMALS: normal inspection of the chest and normal palpation of entire chest wall Resp: COMMON NORMALS: normal respiratory effort, No retractions, No use of accessory muscles, clear to auscultation bilaterally and percussion normal EFFORT & INSPECTION: Yes able to speak in complete sentences AUSCULTATION: clear to auscultation bilaterally PERCUSSION: percussion normal Cardio: COMMON NORMALS: no JVD, regular rate, regular rhythm, S1 normal heart sound present, S2 normal heart sound present and Peripheral pulses 2+ throughout RATE: regular rate RHYTHM: regular rhythm HEART SOUNDS: S1 normal heart sound present and S2 normal heart sound present PERIPHERAL PULSES: Peripheral pulses 2+ throughout GI: COMMON NORMALS: non-tender INSPECTION: Yes abdominal distension OTHER: Patient has severe ascites from his end-stage liver failure. His abdomen is distended skin is firm. No significant tenderness just discomfort with palpation. : COMMON NORMALS: Yes no CVA tenderness BLADDER/KIDNEY EXAM: Yes no CVA t enderness Back/Pelvis: COMMON NORMALS: no CVA tenderness, thoracic and lumbar spine normal to inspection, no thoracic nor lumbar tenderness and thoraco-lumbar ROM normal Extremity: COMMON NORMALS: normal to inspection, full ROM, capillary refill normal, no joint enlargement and no pedal edema GENERAL: Yes normal exam except as noted Neuro: COMMON NORMALS: patient oriented x3, CN's II-XII intact bilaterally, moves all extremities, no focal motor deficits, no sensory deficits noted and gait normal SENSORIUM/ORIENTATION: Yes alert, Yes oriented to person, Yes oriented to place and Yes oriented to time MENINGEAL SIGNS: Yes no meningeal signs Psych: COMMON NORMALS: mental status grossly normal, Normal thought process present, cooperative, normal affect and speech normal APPEARANCE: Yes well kempt ATTITUDE: Yes calm SPEECH: Yes normal speech THOUGHT PROCESS: Normal thought process present Skin: COMMON NORMALS: no rashes or lesions noted GENERAL SKIN EXAM: no rashes or lesions noted Course Vital Signs: Vital signs: Vital Signs Temperature 98.7 F 03/28/21 14:22 Pulse Rate 110 H 03/28/21 14:38 Respiratory Rate 16 03/28/21 16:18 Blood Pressure 147/106 03/28/21 14:38 Pulse Oximetry 98 03/28/21 16:18 MDM - Abdominal Pain MDM Narrative: Medical decision making narrative: This patient comes in with severe ascites which she has from his end-stage liver failure. He does have an elevated white count and slightly elevated heart rate though that is likely from his pain he was having. He was given pain control and offered admission. Dr. Bowman came and saw him and the patient did not want to be admitted and recommended having it done as an outpatient. Outpatient paracentesis was ordered for tomorrow at 1015 and he knows exactly where to go for this procedure. He will return to the ER with worsening symptoms. He is on hospice. He reiterated to me departure that he did not want to stay and he was discharged. Lab Data: Labs: Lab Results 03/28/21 03/28/21 03/28/21 Range/Units 15:10 15:10 15:10 WBC 14.8 H (4.0-10.0) 10^3/ uL RBC 2.79 L (4.1-5.3) 10^6/u L Hgb 10.2 L (11.7-16.6) g/dL Hct 31.0 L (42.0-52.0) % MCV 111.1 H (80-94) fL MCH 36.6 H (28.0-34.0) pg MCHC 32.9 (30.0-36.0) g/dL RDW 15.2 H (12.1-15.1) % Plt Count 254 (130-400) 10^3/c mm MPV 9.7 (7.4-10.4) fL Neut % (Auto) 68.0 % Lymph % (Auto) 20.4 % [place] % (Auto) 7.9 % Eos % (Auto) 2.1 % Baso % (Auto) 0.7 % Neut # (Auto) 10.08 H (1.8-7.7) 10^3/u L Lymph # (Auto) 3.0 (0.8-4.8) 10^3/u L [place] # (Auto) 1.2 H (0.2-0.9) 10^3/u L Eos # (Auto) 0.3 (0.0-0.8) 10^3/u L Baso # (Auto) 0.1 (0.0-0.1) 10^3/u L Nucleated RBC % (a uto) 0 % Nucleated RBCs # 0.0 /100WBC PT 17.70 H (12.1-14.9) SECO NDS INR 1.42 H (0.8-1.2) Sodium 128 L (136-145) mmol/L Potassium 4.1 (3.5-5.1) mmol/L Chloride 102 (98-107) mmol/L Carbon Dioxide 14 L (22-29) mmol/L Anion Gap 16.1 (5-19) BUN 12 (6-20) mg/dL Creatinine 1.0 (0.7-1.2) mg/dL GFR Calculation 83.6 L (90-130) mL/min Glucose 86 (65-115) mg/dL Calculated Osmolal ity 265 L (285-295) mOsm/k g Lactate (0.5-2.2) mmol/L Calcium 8.2 L (8.5-10.5) mg/dL Total Bilirubin 4.1 H (0.15-1.2) mg/dL AST 39 (0-40) U/L ALT 14 (0-41) U/L Alkaline Phosphata se 328 H (40-130) IU/L Total Protein 7.3 (6.6-8.7) g/dL Albumin 2.8 L (3.5-5.2) g/dL Globulin 4.5 (1.3-4.6) g/dL Lipase 26 (13-60) U/L Ethyl Alcohol < 10 (0-10) mg/dL 03/28/21 Range/Units 15:10 WBC (4.0-10.0) 10^3/ uL RBC (4.1-5.3) 10^6/u L Hgb (11.7-16.6) g/dL Hct (42.0-52.0) % MCV (80-94) fL MCH (28.0-34.0) pg MCHC (30.0-36.0) g/dL RDW (12.1-15.1) % Plt Count (130-400) 10^3/c mm MPV (7.4-10.4) fL Neut % (Auto) % Lymph % (Auto) % [place] % (Auto) % Eos % (Auto) % Baso % (Auto) % Neut # (Auto) (1.8-7.7) 10^3/u L Lymph # (Auto) (0.8-4.8) 10^3/u L [place] # (Auto) (0.2-0.9) 10^3/u L Eos # (Auto) (0.0-0.8) 10^3/u L Baso # (Auto) (0.0-0.1) 10^3/u L Nucleated RBC % (a uto) % Nucleated RBCs # /100WBC PT (12.1-14.9) SECO NDS INR (0.8-1.2) Sodium (136-145) mmol/L Potassium (3.5-5.1) mmol/L Chloride (98-107) mmol/L Carbon Dioxide (22-29) mmol/L Anion Gap (5-19) BUN (6-20) mg/dL Creatinine (0.7-1.2) mg/dL GFR Calculation (90-130) mL/min Glucose (65-115) mg/dL Calculated Osmolal ity (285-295) mOsm/k g Lactate 1.6 (0.5-2.2) mmol/L Calcium (8.5-10.5) mg/dL Total Bilirubin (0.15-1.2) mg/dL AST (0-40) U/L ALT (0-41) U/L Alkaline Phosphata se (40-130) IU/L Total Protein (6.6-8.7) g/dL Albumin (3.5-5.2) g/dL Globulin (1.3-4.6) g/dL Lipase (13-60) U/L Ethyl Alcohol (0-10) mg/dL Discharge Plan Discharge Patient Disposition: Home Clinical Impression: Ascites due to alcoholic cirrhosis Condition: Stable Prescriptions: No Action morphine concentrate 100 mg/5 mL (20 mg/mL) solution 10 mg PO Q2H RF: 0 spironolactone 25 mg Tablet 25 mg PO DAILY RF: 0 diclofenac sodium 75 mg Tablet,Delayed Release (Dr/Ec) 75 mg PO BID RF: 0 quetiapine 100 mg tablet 25 mg PO DAILY RF: 0 amlodipine 10 mg tablet 10 mg PO DAILY RF: 0 pantoprazole 40 mg tablet,delayed release (DR/EC) 40 mg PO DAILY RF: 0 levetiracetam 750 mg tablet 750 mg PO BID RF: 0 metoprolol tartrate 25 mg tablet 25 mg PO BID RF: 0 multivitamin Tablet 1 tab PO DAILY RF: 0 aspirin [Aspir-81] 81 mg Tablet,Delayed Release (Dr/Ec) 81 mg PO PRN RF: 0 vitamin B complex Tablet 1 tab PO QAM RF: 0 Glucosamine Chondroitin 550-30-1 mg Capsule 0.5 cap PO BID RF: 0 Lipitor 1 tab PO DAILY RF: 0 MegaRed Advanced 4-in-1 1 cap PO BEDTIME RF: 0 Probiotic 1 cap PO QAM RF: 0 Discharge Orders: Discharge ED (Routine); Ordered 03/28/21 Ordered By: Reynold Collins Discharge Diet: Advance as tolerated Discharge Activity: Resume usual activity Patient Instructions: Ascites (ED), Opioid Safety Activity Restrictions/Additional Instructions: You have a therapeutic paracentesis scheduled for tomorrow morning at 10:15 AM. Please arrive at registration at 945 in a.m. and do not eat anything past midnight. Return to the ER at anytime with worsening symptoms or shortness of breath and we will be happy to evaluate you. Coding Level of Care Code ED Lease Purchase Truck Driver for Beronica Garcia
--- NOTE | 2021-03-29 08:51 | PC.SOCIAL ---
Dr Boogie asked that this nurse look into follow up on patient to have Hospice company have another therapeutic paracentesis scheduled to ensure patient does not have to wait until he if full of fluid and very uncomfortable and present to ED and wait to be seen. Patient preference is to have anything done as outpatient to avoid admission to hospital and be able to remain in home setting as much as possible per Dr Boogie report after talking to patient. Patient is established with [facility]. Spoke with Director Luisa (phone #[phone]) to see about getting another paracentesis on schedule toward end of next week in case it is needed prior to having drain placed by Dr Calvo on April 09, 2021 (date given to me by Luisa). Explained that it typically takes awhile to coordinate this as an outpatient so if the Hospice provider can send the order to [facility] then it can be scheduled for hopefully next . The nurse will go out Thu to see patient and if it is decided that the paracentesis is not needed then the appt can be cancelled. We want to ensure the patient is managed well for comfort prior to having the drain placed to help with termite exterminator helper management of Ascites.
== END 2021-03-28 19:00 | disposition home or self-care (01) ==
LOC: ER 14:44 → MEDSURG 18:08
PROVIDERS: Emergency Provider Family Medicine
DX: K70.31 Alcoholic cirrhosis of liver with ascites (principal); Z79.82 Long term (current) use of aspirin
CPT/HCPCS: 71045; 80053; 80307; 83605; 83690; 85025; 85610; 96372; 99283; J2270

== ENCOUNTER 2021-03-29 09:25 | Outpatient (CLI) | payer OTHER, SELFPAY ==
--- NOTE | 2021-03-29 09:35 | US_ITS ---
WS: [id number] ULTRASOUND-GUIDED THERAPEUTIC PARACENTESIS Procedure, risks, and complications have been explained to the patient. Consent is obtained. Utilizing aseptic technique and 1% buffered lidocaine, a small dermatome was made through which a 5 F rench Yueh catheter was inserted. Approximately 5000 ml of clear peritoneal fluid was obtained witho ut difficulty. No complications encountered. US/US paracentesis abd w [id number] IMPRESSION: Uncomplicated paracentesis yielding 5000 ml of peritoneal fluid.
== END 2021-03-29 09:26 | disposition home or self-care (01) ==
LOC: RAD 09:30
PROVIDERS: Visit Provider Family Medicine
DX: K72.90 Hepatic failure, unspecified without coma (principal)
CPT/HCPCS: 49083

== ENCOUNTER → 2021-04-04 09:51 | Outpatient (BNVA) | payer MEDICAID, SELFPAY | PROVIDERS: Visit Provider Surgery | DX: K70.40 Alcoholic hepatic failure without coma (principal); Z20.822 Contact with and (suspected) exposure to COVID-19 | CPT/HCPCS: 87635 ==

== ENCOUNTER 2021-04-09 11:19 | Day surgery (SDC) | payer OTHER, MEDICAID, SELFPAY ==
--- NOTE | 2021-04-05 14:09 | US_ITS ---
WS: [id number] ULTRASOUND-GUIDED THERAPEUTIC PARACENTESIS Procedure, risks, and complications have been explained to the patient. Consent is obtained. Utilizing aseptic technique and 1% buffered lidocaine, a small dermatome was made through which a 5 F rench Yueh catheter was inserted. Approximately 5000 ml of clear peritoneal fluid was obtained witho ut difficulty. No complications encountered. US/US paracentesis abd w [id number] IMPRESSION: Uncomplicated paracentesis yielding 5000 ml of peritoneal fluid.
[2021-04-08 17:39] VITALS: BMI 34.1
[2021-04-09] VITALS (10 sets, daily range): BP systolic 111–135; BP diastolic 73–95; PULSE 110–123; RESP 17–20; TEMP 36.6–37.2; O2SAT 86–97
[2021-04-09] MEDS: sodium chloride 0.9% 1,000 ML 30 ML IV (12:16)
--- NOTE | 2021-04-09 13:22 | W.PM.OPSUD ---
Surgery/Procedure H&P Update DATE OF PROCEDURE: April 09, 2021 DATE H&P PERFORMED: 03/27/21 H&P UPDATE INFORMATION: I have reviewed H&P completed within last 30 days, I have examined patient prior to procedure and No changes to prior documentation PREOP DIAGNOSIS: Ascites due to alcoholic liver cirrhosis PRIMARY INDICATION FOR PROCEDURE: The same PLANNED PROCEDURE: Operation Date: 04/09/21 12:30 Proposed Procedures p placment of abdominal stan drain 16449 K70.40(Not Applicable) - Ricki Calvo MD
--- NOTE | 2021-04-09 13:25 | ANES.PREANE2 ---
Pre-Anesthetic Assessment Pre-Anesthetic Assessment: Height/Weight: Height 1.7 m Weight 98.883 kg Temp Pulse Resp BP Pulse Ox 97.8 F 123 H 18 135/95 96 04/09/21 11:58 04/09/21 11:58 04/09/21 11:58 04/09/21 11:58 04/09/21 11:58 Preop Diagnosis: Ascites due to alcoholic liver cirrhosis Proposed Procedure: Operation Date: 04/09/21 12:30 Proposed Procedures p placment of abdominal stan drain 65158 K70.40(Not Applicable) - Ricki Calvo MD Familial anesthetic complications: None Was Beta Jessica taken within 24 hours: Yes Was Clonidine taken within 24 hours: N/A Last intake: Intake Last Liquid Date 04/08/21 Last Liquid Time 09:00 Last Solid Date 04/08/21 Last Solid Time 21:00 Social: Social History: Tobacco and No alcohol Comment: former etoh Exam: Pre-Anes Outpt Exam: alert, oriented x 3, clear to auscultation bilaterally and regular rate & rhythm Airway: Cervical ROM: WNL MP: 3 Dentition: Other (missing) CV/HEM: CV/HEM: HTN Hepatic: Hepatic: Cirrohsis (etoh) Comments: ascites Neuropsych: Neuropsych: Seizure Anesthetic Plan: ASA status: 4 Anesthesia: General Risk of > 500 ml blood loss (7ml/kg in children): No Meds/Allergies Current Medications: Current Medications Generic Name Dose Route Start Last Admin Trade Name Freq PRN Reason Stop Dose Admin Sodium Chloride 1,000 mls @ 30 ml s/hr 04/09/21 11:45 04/09/21 12:16 Sodium Chloride 0.9% IV 04/10/21 11:44 30 mls/hr .Q24H JAMESON Administration PFSH Anesthesia PFSH: Medical History Alcohol abuse Seizure Data Anesthesia Cardiac Studies: No Data to Display
[2021-04-09] MEDS: lidocaine 2% INJ 20 mL INJECTION (14:35)
--- NOTE | 2021-04-09 14:41 | PM.OP ---
Operative Report Date of procedure: April 09, 2021 Pre-op Diagnosis: Ascites due to alcoholic liver cirrhosis Post-op diagnosis: same Post-op Diagnosis: Same Procedure Done: 1-Placement of abdominal Rome drain 2-Under Ultrasound guidance with my personal interpretation Implants: Abdominal Rome drain Surgeon: Ricki Calvo Mucker Operator: technology sales specialist Danny and medical student Shelli Donahue Circulating nurse Sherley Santana Anesthesia: MAC (boring mill set up operator Sandor) Estimated blood loss (mL): 10 IV fluids: Albumin IV Condition: stable Disposition: same day Brief History: Symptomatic ascites with liver cirrhosis. Full H&P per chart. Informed consent per chart Procedure: Patient was identified in the holding area and taken to the operative room and placed in supine position ,both arms were tucked,Time-out was done verifying the patient's name/date of /planned procedure and destination after the procedure, all were in agreement.SCDs confirmed to be functioning, patient was given prophylactic antibiotics administered per protocol, and beta abdoul protocol was confirmed, appropriate positioning of the patient was done by me. Prep& drape was done under the usual sterile technique of lower chest and the entire abdomen, lidocaine 2% was injected at the site of the stick, started by right lower quadrant stick that retrieved serous fluid assistant speech language pathologist with ascitic fluid was obtained from the first stick under U/S guidance, a guidewire was then threaded, at that point the guidewire was secured to the drapes with a hemostat and the needle was taken out, attention was then deviated towards creation of an insert for the Rome drain pump at the right lower chest, were lidocaine 2% was injected using an 15 blade knife 2 inches skin incision was created dissection using a hemostat to create an entrance for the Labette drain pump to be inserted were it was tubing system from both ends a short one connected to a tunneler, and the tunneler was used to accommodate the catheter of the draining catheter to be delivered through the incision first created at the site of the stick, ,at that point,serial dilators were done that come in the in the KIT, followed by that a dilator with the sheath introduced onto the guidewire ,the dilator and the wire were retrieved and the catheter was introduced via the sheath where it was peeled off and the catheter maintained, to be in good position in the right lower quadrant The longer tubing system connected to the other part of the Labette pump, was connected to the tunneler, and brought out from a different stab incision, cephalad to the pump site, pump was then tested and it was working fine by acting the fluid for drainage outside the abdominal cavity, 1.5 L was drained to give the patient some relief. All incisions were closed by vicryl and 3-0 nylon suture as multiple figure of 8 to prevent ascitic fistula 3/0 nylon was used to secure the longer catheter/tubing system onto the upper anterior chest wall Patient tolerated the procedure well was taken to the recovery area in stable condition Count was correct at the end of the procedure I was present for the whole entire procedure
[2021-04-09] MEDS: neomycin-poly-bacitracin oint 28 gm 1 APPLIC TOPICAL (14:56)
--- NOTE | 2021-04-09 18:07 | ANE.PACU2 ---
Inpatient post-anesthesia follow up: Airway intact: Yes Vital signs: Temperature 99 F Pulse Rate 114 Respiratory Rate 18 Blood Pressure 111/86 Pulse Oximetry 94 Oxygen Delivery Me thod Room Air Oxygen Flow Rate 2 Fraction of Inspir ed Oxygen Hydration adequate: Yes Nausea and vomiting: No Pain level: 2 Mental status: Baseline
== END 2021-04-09 16:30 | disposition hospice, inpatient (51) ==
PROVIDERS: Visit Provider Surgery
DX: K70.40 Alcoholic hepatic failure without coma (principal)
CPT/HCPCS: 49083; 96365; J0690; J2370; J2704; J7030; P9041